=== PATIENT | male | born 1960 ===

== ENCOUNTER 2020-06-26 15:04 | Outpatient (CLI) | payer OTHER ==
--- NOTE | 2020-06-26 16:00 | XRAY Report ---
PROCEDURE: Knee 2 View RT INDICATIONS: CELLULITIS OF RIGHT KNEE TECHNIQUE: 2 views of the right knee(s) were acquired. COMPARISON: None. FINDINGS: Bones: 2 views of the right knee were performed. There is no fracture or dislocation. Calcifications in the joint space are consistent with chondrocalcinosis. There are no significant degenerative trejo es. Soft tissues: There is soft tissue swelling of the prepatellar bursa and in the suprapatellar soft ti ssues. No soft tissue gas. There is a small joint effusion. IMPRESSION: 1. Prepatellar soft tissue swelling consistent with prepatellar bursitis, infectious versus inflammat ory. 2. Chondrocalcinosis. Reviewed by: Ryan Méndez on 06/26/2020 3:59 PM PST Approved by: Ryan Méndez on 06/26/2020 3:59 PM PST Station ID: [id number]
== END 2020-06-26 15:05 | disposition home or self-care (01) ==
LOC: DI.S 15:04
PROVIDERS: ATTEND Nurse Practitioner Family
DX: R93.6 Abnormal findings on diagnostic imaging of limbs (principal); R93.89 Abnormal findings on diagnostic imaging of other specified body structures; M11.261 Other chondrocalcinosis, right knee

== ENCOUNTER 2020-09-23 07:55 | Outpatient (CLI) | payer OTHER ==
[2020-09-23] MEDS ORDERED: GADOBUTROL 10 MMOL/10 ML VIAL ONE (08:29)
[2020-09-23] MEDS ORDERED: GADOBUTROL 10 MMOL/10 ML VIAL IVP ONE (09:34)
--- NOTE | 2020-09-23 12:54 | MRI Report ---
PROCEDURE: Knee RT W/WO INDICATIONS: RT KNEE BURSA CONTRAST: IV CONTRAST: Gadavist ml: 8 TECHNIQUE: Noncontrast sagittal PD fast spin echo and T2 fast spin echo with fat saturation, sagittal 3-D spoile d GE with fat saturation; coronal T1 spin echo and PD fast spin echo with fat saturation, and axial T 1 spin echo and PD fast spin echo with fat saturation through the knee. Post-contrast axial, coronal , and sagittal T1 spin echo with fat saturation through the knee. COMPARISON: None. FINDINGS: Image quality: Excellent. Menisci: The medial and lateral menisci demonstrate normal morphology and internal signal. The meni scal root ligaments appear intact. Cruciate ligaments: The anterior and posterior cruciate ligaments appear intact. Medial structures: The medial collateral ligament appears intact. The posterior oblique ligament, s emimembranosus tendon insertions, and oblique popliteal ligament, and meniscocapsular junction appear intact. Visualized portions of the pes anserinus tendons appear normal. No abnormal bursal fluid. Lateral structures: The lateral collateral ligament, long and short heads of the biceps femoris tend on appear intact. The popliteus tendon appears normal; the popliteofibular ligament appears intact. The posterosuperior and anteroinferior popliteomeniscal fascicles appear intact. The arcuate and fa bellofibular ligaments appear intact, around the lateral inferior geniculate artery. Iliotibial band appears normal. Anterior structures: 5 x 4.2 x 13.9 cm fluid distention of prepatellar bursa is seen with thickened a nd enhancing bursal lining and surrounding soft tissue edema anterior and lateral to the patella and patella tendon with internal thin septations consistent with bursitis. The quadriceps and patellar te ndons appear intact. Patellar alignment is normal. No femoral trochlear dysplasia or ventral trochl ear prominence. No edema in the infrapatellar fat pad. Bones and cartilage: No suspicious osseous enhancement. No bone marrow contusions or fractures. Th e cartilage of the medial and lateral femorotibial compartments, as well as the patellofemoral compar tment, appears normal in thickness. Joint space: There is physiologic knee joint fluid. No Alfaro?s cyst. Normal appearing synovial pli are incidentally noted. No suspicious soft tissue enhancement. IMPRESSION: 1. Finding is consistent with prepatellar bursitis with large 5 x 4.2 x 13.9 cm fluid distention of p repatellar bursa and surrounding soft tissue edema anterior and lateral to patella and patella tendon . 2. Cruciate ligaments are intact. 3. No evidence of focal meniscal tear. 4. No marrow edema. No fracture or dislocation. No bony erosive changes. 5. Distal quadriceps tendon and patellar tendon are intact. Reviewed by: Ron Salmeron MD on 09/23/2020 12:53 PM PST Approved by: Ron Salmeron MD on 09/23/2020 12:53 PM PST Station ID: [id number]
== END 2020-09-23 07:56 | disposition home or self-care (01) ==
LOC: DI 07:55
PROVIDERS: ATTEND Physician Assistant Medical
DX: M25.561 Pain in right knee (principal); M70.41 Prepatellar bursitis, right knee; L03.115 Cellulitis of right lower limb
CPT/HCPCS: 73723; A9585